=== PATIENT | male | born 1965 | race Caucasian/White ===

== ENCOUNTER 2016-12-16 15:39 | Emergency (ER) | payer BC ==
[~2016-12-16] VITALS: Ht 182.9 cm; Wt 77.4 kg
[2016-12-16 16:34] LABS: ADD MIUA? YES; BILIRUBIN NEGATIVE; BLOOD SMALL; COLOR YELLOW ((YELLOW)); GLUCOSE (STRIP) NEGATIVE; KETONES 5; LEUKOCYTES MODERATE; NITRITE NEGATIVE; PROTEIN (STRIP) 100; SPECIFIC GRAVITY 1.034 (1.000-1.030); UROBILINOGEN 0.2 MG/DL (0.2-1.0)
[2016-12-16 17:01] LABS: CASTS PRESENT /LPF; COARSE GRANULAR CASTS RARE /LPF; EPITHELIAL CELLS 1+ /HPF
[2016-12-16 17:02] LABS: MUCUS 3+ /LPF; RED BLOOD CELLS RARE /HPF (0-5); WHITE BLOOD CELLS TNTC /HPF (0-5)
[2016-12-16 17:03] LABS: BACTERIA 1+ /HPF; UCUL ADDED? YES
[2016-12-16 17:04] LABS: HEMATOCRIT 45.3 % (38.0-50.0); MCH 28.6 PG (29.0-34.0); MCHC 33.3 G/DL (30.0-36.0); MCV 85.8 FL (86-99); PLATELET COUNT 232 K/uL (156-360); RBC DIS.WIDTH-CV 12.9 % (11.8-14.6); RBC DIS.WIDTH-SD 39.8 % (39-53); RED BLOOD COUNT 5.28 M/uL (4.00-5.50); WHITE BLOOD COUNT 11.7 K/uL (4.1-10.2)
[2016-12-16 17:50] LABS: CHLORIDE 105 mEq/L (99-109); SODIUM 141 mEq/L (136-147)
[2016-12-16 17:52] LABS: GLUCOSE 138 mg/dL (70-99)
[2016-12-16 17:53] LABS: ANION GAP 11 MEQ/L (2-14)
[2016-12-16 17:54] LABS: TOTAL BILIRUBIN 0.5 mg/dL (0.0-1.0)
[2016-12-16 17:56] LABS: ALKALINE PHOSPHATASE 67 IU/L (3-129); GFR ESTIMATE (CALCULATED) > 59 mL/min/
[2016-12-16 17:57] LABS: UREA NITROGEN (BUN) 26 mg/dL (9-23)
[2016-12-16] MEDS ORDERED: ZOFRAN ODT4 MG PO (19:15)
[2016-12-16] MEDS ORDERED: KEFLEX500 MG PO (19:15)
[2016-12-16 19:55] VITALS: BP 103/66
== END 2016-12-16 20:28 | disposition home or self-care (01) ==
LOC: EME 15:39
PROVIDERS: Nurse Practitioner Family
DX: N39.0 Urinary tract infection, site not specified (principal); R31.9 Hematuria, unspecified; E27.8 Other specified disorders of adrenal gland; E11.9 Type 2 diabetes mellitus without complications; Z85.820 Personal history of malignant melanoma of skin; I69.354 Hemiplegia and hemiparesis following cerebral infarction affecting left non-dominant side; Z87.891 Personal history of nicotine dependence
CPT/HCPCS: 74176; 80053; 81003; 85027; 87086; 99281; 99285; J1885; J2405; J7030